=== PATIENT | male | born 1980 | race Two or more races ===

== ENCOUNTER 2020-08-15 06:00 | Day surgery (SDC) | payer OTHER ==
[~2020-08-15 06:00] MED LIST: COZAAR50 MG PO; SYNTHROID112 MCG PO
[2020-08-15] MEDS ORDERED: PERCOCET 5-3251 EACH PO (08:34)
== END 2020-08-15 10:20 | disposition home or self-care (01) ==
LOC: CIR.AMB 06:00
PROVIDERS: ATTEND Surgery
DX: C20 Malignant neoplasm of rectum (principal); Z20.828 Contact with and (suspected) exposure to other viral communicable diseases
CPT/HCPCS: 36561; C1751

== ENCOUNTER 2020-11-24 06:20 | Day surgery (SDC) | payer OTHER ==
[~2020-11-24 06:20] MED LIST changes: +PERCOCET 5-3251 EACH PO
== END 2020-11-24 10:50 | disposition home or self-care (01) ==
LOC: AMB-ENDOS 06:20
PROVIDERS: ATTEND Surgery
DX: K62.1 Rectal polyp (principal); Z20.822 Contact with and (suspected) exposure to COVID-19

== ENCOUNTER 2021-01-30 12:30 | Inpatient (IN) | payer OTHER ==
[~2021-01-30] VITALS: Ht 162.6 cm; Wt 79.4 kg
[2021-02-10] MEDS ORDERED: PRILOSEC10 MG PO (09:48)
[2021-02-10] MEDS ORDERED: PERCOCET 5-3251 EACH PO (09:48)
== END 2021-02-10 12:45 | disposition home or self-care (01) | DRG 330 ==
LOC: O/R 02-06 07:05 → SURH 02-06 07:05
PROVIDERS: ADMIT Surgery; ATTEND Surgery
PROC: 0DTP4ZZ Resection of Rectum, Percutaneous Endoscopic Approach (ICD-10-PCS; 2021-02-06)
PROC: 0DBQ4ZZ Excision of Anus, Percutaneous Endoscopic Approach (ICD-10-PCS; 2021-02-06)
PROC: 07BB4ZZ Excision of Mesenteric Lymphatic, Percutaneous Endoscopic Approach (ICD-10-PCS; 2021-02-06)
PROC: 0D1M4Z4 Bypass Descending Colon to Cutaneous, Percutaneous Endoscopic Approach (ICD-10-PCS; 2021-02-06)
PROC: 0DTN4ZZ Resection of Sigmoid Colon, Percutaneous Endoscopic Approach (ICD-10-PCS; principal; 2021-02-06 14:00)
DX: C20 Malignant neoplasm of rectum (principal); K62.5 Hemorrhage of anus and rectum; D64.9 Anemia, unspecified; R59.0 Localized enlarged lymph nodes; K62.89 Other specified diseases of anus and rectum; I11.9 Hypertensive heart disease without heart failure

== ENCOUNTER 2023-12-09 05:48 | Day surgery (SDC) | payer OTHER ==
[~2023-12-09 05:48] MED LIST changes: +PRILOSEC10 MG PO
[2023-12-09] MEDS ORDERED: VANCOMYCIN HCL 1,000 MG VIAL IV SCH (06:00)
[2023-12-09] MEDS ORDERED: CEFAZOLIN SODIUM 1,000 MG VIAL ONE (09:28)
[2023-12-09] MEDS ORDERED: TRAM1TAB98 PO (10:01)
[2023-12-09] MEDS ORDERED: CEFAZOLIN SODIUM 1,000 MG VIAL IV ONE (10:15)
== END 2023-12-09 11:50 | disposition home or self-care (01) ==
LOC: CIR.AMB 05:48
PROVIDERS: ATTEND Surgery
DX: C20 Malignant neoplasm of rectum (principal); Z88.0 Allergy status to penicillin; Z88.8 Allergy status to other drugs, medicaments and biological substances